=== PATIENT | male | born 1940 | race Caucasian/White ===

== ENCOUNTER 2018-08-07 09:37 | Emergency (ER) | payer MEDICARE, OTHER ==
[2018-08-07] MEDS ORDERED: amLODIPine TAB* 5 MG PO ONE (10:03)
--- NOTE | 2018-08-07 10:11 | ED ---
Complex/Multi-Sys Presentation - HPI Summary HPI Summary: 77-year-old male with history of atrial fibrillation and hypertension presents with asymptomatic hypertension noticed this morning. His blood pressure was 180 systolic. He states that he had been labile on his metoprolol and was recently changed off that onto digoxin by his division operations specialist Dr. Martinez. Today, he reports no chest pain, shortness of breath, headaches, numbness or weakness or other symptoms. He is not on blood thinner aside from aspirin and Plavix as he bled with anticoagulants in the past. - History Of Current Complaint Chief Complaint: EDHypertension Time Seen by Provider: 08/07/18 09:53 Hx Obtained From: Patient Timing: Constant - Allergies/Home Medications Allergies/Adverse Reactions: Allergies Allergy/AdvReac Type Severity Reaction Status Date / Time meperidine [From Demerol] Allergy Nausea And Verified 08/07/18 09:51 Vomiting PMH/Surg Hx/FS Hx/Imm Hx Previously Healthy: No Endocrine/Hematology History: Denies: Hx Anticoagulant Therapy Cardiovascular History: Reports: Hx Atrial Fibrillation, Hx Hypertension, Hx Pacemaker/ICD - Surgical History Surgery Procedure, Year, and Place: see above - Immunization History Date of Tetanus Vaccine: 2012 Date of Influenza Vaccine: 2013 Infectious Disease History: No Infectious Disease History: Denies: Traveled Outside the [place] in Last 30 Days - Family History Known Family History: Positive: Hypertension - Social History Occupation: Retired Alcohol Use: None Substance Use Type: Reports: None Smoking Status (MU): Former Smoker Review of Systems Constitutional: Negative Negative: Palpitations, Chest Pain Negative: Shortness Of Breath Negative: Vomiting, Nausea Negative: hematuria Negative: Arthralgia Negative: Headache, Weakness, Numbness All Other Systems Reviewed And Are Negative: Yes Physical Exam Triage Information Reviewed: Yes Vital Signs On Initial Exam: Initial Vitals Temp Pulse Resp BP Pulse Ox 98.3 F 90 16 139/75 97 08/07/18 09:46 08/07/18 09:46 08/07/18 09:46 08/07/18 09:46 08/07/18 09:46 Vital Signs Reviewed: Yes Appearance: Positive: Well-Appearing, No Pain Distress, Well-Nourished Skin: Positive: Warm, Skin Color Reflects Adequate Perfusion, Dry Eyes: Positive: Normal ENT: Positive: Normal ENT inspection Neck: Positive: Nontender Respiratory/Lung Sounds: Positive: Clear to Auscultation, Breath Sounds Present Cardiovascular: Positive: Pulses are Symmetrical in both Upper and Lower Extremities - pacemaker R chest. Negative: RRR - Irregularly irregular, Leg Edema Left, Leg Edema Right Abdomen Description: Positive: Nontender, No Organomegaly Musculoskeletal: Positive: Normal, Strength/ROM Intact Neurological: Positive: Normal, Sensory/Motor Intact, Alert, Oriented to Person Place, Time, CN Intact II-III Psychiatric: Positive: Normal Diagnostics - Vital Signs Vital Signs Temp Pulse Resp BP Pulse Ox 08/07/18 09:46 98.3 F 90 16 139/75 97 - Laboratory Lab Statement: Any lab studies that have been ordered have been reviewed, and results considered in the medical decision making process. - EKG EKG Cardiac Rate: NL - 97 EKG Interpretation: intermittent atrial paced rhythm with supraventricular bigeminy. EKG Comparison: Other - Possibility of atrial fibrillation. Normal axis. Nonspecific ST Complex Multi-Symp Course/Dx Course Of Treatment: Patient with asymptomatic hypertension after the pressure medication change. He had been taken off beta brennon as his blood pressure was labile. I started him on amlodipine 10 mg here with plans to give him 5 mg outpatient. He was gradual to follow-up with his division operations specialist Dr. Martinez first thing tomorrow. - Diagnoses Differential Diagnoses/HQI/PQRI: Other - Medication reaction Provider Diagnoses: Asymptomatic hypertension Discharge - Sign-Out/Discharge Documenting (check all that apply): Patient Departure - Discharge Plan Condition: Improved Disposition: HOME Prescriptions: amLODIPine TAB* [Norvasc 5 mg TAB*] 5 mg PO DAILY #6 tab Patient Education Materials: Hypertension (ED) Referrals: Elba Ruff MD [Primary Care Provider] - Additional Instructions: Call your division operations specialist first thing tomorrow to schedule follow-up. You're given 10 mg of amlodipine here in the ER. He'll be prescribed 5 mg. You can take 1 or 2 based on what your blood pressure is. Do not go below 110. Return if worse, new symptoms or other concerns. - Billing Disposition and Condition Condition: IMPROVED Disposition: Home - Attestation Statements Document Initiated by Scribe: No
[2018-08-07 10:23] VITALS: BP 164/76
== END 2018-08-07 10:23 | disposition home or self-care (01) ==
LOC: ED 09:37
DX: I10 Essential (primary) hypertension (principal); I48.91 Unspecified atrial fibrillation; Z87.891 Personal history of nicotine dependence; Z95.810 Presence of automatic (implantable) cardiac defibrillator; Z88.8 Allergy status to other drugs, medicaments and biological substances; I45.10 Unspecified right bundle-branch block
CPT/HCPCS: 93005; 99282; A9270-GY

== ENCOUNTER 2019-11-14 09:44 | Emergency (ER) | payer MEDICARE, BC ==
[2019-11-14 09:56] VITALS: BP 155/80
--- OUTSIDE RECORDS SUMMARY | 2019-11-14 10:03 | XMS REPORT | Continuity of Care Document ---
:1940 External Reference #:[id number] Author Name Josef Martinez M.D. (transmitted by agent of provider Anna Gómez ) Address [address] [place] [address] Care Team Providers Name Role Phone Buster Barlow MD - Urology Care Team Information Handbag Frames Inspector [phone] Elba Ruff MD - Internal Care Team Information Handbag Frames Inspector Medicine Problems Active Problems Provider Date Sinus node dysfunction Remote Device Checks Onset: 02/19/2012 Coronary arteriosclerosis Josef Martinez M.D. Onset: 10/14/2012 Syncope and collapse Josef Martinez M.D. Onset: 10/14/2012 Pure hypercholesterolemia Josef Martinez M.D. Onset: 02/16/2013 Low blood pressure Josef Martinez M.D. Onset: 02/16/2013 Cardiac pacemaker in situ Josef Martinez M.D. Onset: 02/06/2014 Benign essential hypertension Josef Martinez M.D. Onset: 02/06/2014 Essential hypertension Josef Martinez M.D. Onset: 09/17/2015 Localized, primary osteoarthritis Treasure Xiao M.D. Onset: 07/31/2019 Social History Type Date Description Comments Sex Unknown Tobacco Use Start: Unknown End: Former Cigarette Smoker Unknown Tobacco Use Start: Unknown End: Former Cigarette Smoker 25 years Unknown 5-10 Cigarettes Daily Cigarette Use Quit - Age 38 Smoking Status Reviewed: 09/19/19 Former Cigarette Smoker 25 years 5-10 Cigarettes Daily ETOH Use Rarely consumes alcohol 1-2x per year Tobacco Use Start: Unknown End: Patient is a former Unknown smoker Recreational Drug Use Denies Drug Use Tobacco Use Start: Unknown Not smoking at all Exercise Type/Frequency Exercises regularly Exercise Type/Frequency walks at least 4 times a week Allergies, Adverse Reactions, Alerts Active Allergies Reaction Severity Comments Date Lisinopril cough 06/21/2010 Enalapril urticaria 06/21/2010 Demerol N/V 08/18/2012 Xarelto nose bleeds 08/16/2018 Inactive Allergies NKDA 11/18/2004 Medications Active Medications SIG Qnty Indications Ordering Provider Date Digoxin 1 [facility] mouth [facility] [place], 08/17/2018 125mcg day N.P. Tablets Toprol XL 1 tab by mouth 180tabs I48.0 [facility] [place], 08/08/2018 25mg twice a day N.P. Tablets ER 24HR Klor-Con M10 1 tab by mouth 180tabs [facility] [place], 08/31/2017 10Meq twice a day N.P. Tablets ER Losartan Potassium 1 tab by mouth 90tabs [facility] [place], 08/31/2017 daily N.P. 25mg Tablets Aspir-81 1 by mouth every 100tabs Josef Berrios 02/13/2016 81mg Tablets day (dain Martinez M.D. DR 11/10/18) Nitrostat one sl q5min up 25tabs Tatum Sade [place], 03/15/2014 0.4mg to 3 doses as N.P. Tablets Sub needed Plavix 1 by mouth every 90tabs Josef Berrios 11/04/2012 75mg Tablets day Kiko Martinez Crestor 1 tab by mouth 90tabs [facility] [place], 08/07/2008 20mg Tablets every day N.P. Uroxatral 1 po qd Unknown 10mg Tablets ER 24HR Ferrous Sulfate 1 tab daily by 90tabs Tatum Damon, mouth N.P. 325(65Fe) mg Tablets Multi-Vitamins take one tablet Unknown by mouth every Tablets day (supplement) Cpap for use while Unknown Device sleeping Bilateral Hearing Unknown Aid Medications Administered in Office Medication SIG Qnty Indications Ordering Provider Date Synvisc Or Synvisc-One Injection Treasure Xiao M.D. 09/18/2019 1 MG Injection Synvisc Or Synvisc-One Injection Treasure Xiao M.D. 09/18/2019 1 MG Injection Synvisc Or Synvisc-One Injection Treasure Xiao M.D. 09/11/2019 1 MG Injection Synvisc Or Synvisc-One Injection Treasure Xiao M.D. 09/11/2019 1 MG Injection Synvisc Or Synvisc-One Injection Treasure Xiao M.D. 09/04/2019 1 MG Injection Synvisc Or Synvisc-One Injection Treasure Xiao M.D. 09/04/2019 1 MG Injection Depomedrol 40MG Treasure Xiao M.D. 07/31/2019 Injection Depomedrol 40MG Brenden Rojo M.D. 02/28/2016 Injection Depomedrol 40MG Brenden Rojo M.D. 07/26/2015 Injection Immunizations Description No Information Available Vital Signs Date Vital Result Comment 09/19/2019 3:31pm Height 68 inches 5'8" Weight 144.50 lb with shoes Heart Rate 68 /min right radial BP Systolic Sitting 140 mmHg ule reg cuff BP Diastolic Sitting 76 mmHg ule reg cuff BP Systolic Standing 138 mmHg ule reg cuff BP Diastolic Standing 76 mmHg ule reg cuff BMI (Body Mass Index) 22.0 kg/m2 Ejection Fraction 50-55% Echo 04/20/19 09/18/2019 1:53pm Height 68 inches 5'8" Weight 140.00 lb Heart Rate 84 /min BP Systolic 132 mmHg BP Diastolic 72 mmHg Body Temperature 97.7 F Pain Level 0 BMI (Body Mass Index) 21.3 kg/m2 Results Description No Information Available Procedures Date Code Description Status 09/19/2019 37491 EKG Tracing & Interpretation Completed 09/18/2019 Inject/Drain Joint/Bursa Major W/O US Completed 09/18/2019 Inject/Drain Joint/Bursa Major W/O US Completed 09/11/2019 Inject/Drain Joint/Bursa Major W/O US Completed 09/04/2019 Inject/Drain Joint/Bursa Major W/O US Completed 07/31/2019 Inject/Drain Joint/Bursa Major W/O US Completed 05/22/2019 13310 EKG Tracing & Interpretation Completed 04/20/2019 47292 ECHO Transthoracic, Real-Time 2D With Doppler And Color Completed Flow 04/20/2019 36651 ECHO Transthoracic, Real-Time 2D With Doppler And Color Completed Flow 10/08/2015 [id number] Colonoscopy Completed Medical Devices Description No Information Available Encounters Type Date Location Provider Dx Diagnosis Office Visit 08/14/2019 [facility] Treasure Xiao, M17.0 [facility] 07/31/2019 [facility] Treasurecristi Xiao, M25.561 Pain in right knee 9:30[facility] M25.461 Effusion, right knee M17.11 Unilateral primary osteoarthritis, right knee M25.562 Pain in left knee M25.462 Effusion, left knee M17.12 Unilateral primary osteoarthritis, left knee Office Visit 05/22/2019 2:00p [facility] Josef Berrios I25.10 [facility] Kiko Martinez disease of [place] coronary artery w/o ang pctrs I42.9 Cardiomyopathy, unspecified I35.0 Nonrheumatic aortic (valve) stenosis I49.5 Sick sinus syndrome I48.0 Paroxysmal atrial fibrillation Office Visit 05/22/2019 9:15a [facility] J44.9 [facility] 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 coronary artery with 09/19/2019 J44.9 Chronic obstructive pulmonary disease, Josef Martinez M.D. unspecified 09/19/2019 I35.0 Aortic valve disorder Josef Martinez M.D. 09/19/2019 E78.5 Hyperlipidemia Josef Martinez M.D. 09/19/2019 I49.5 Sick sinus syndrome Josef Martinez M.D. 09/18/2019 M17.0 Bilateral primary osteoarthritis of knee Treasure Xiao M.D. 09/18/2019 M25.561 Pain in right knee Treasure Dameon, M.D. 09/18/2019 M25.562 Pain in left knee Treasure Dameon, M.D. 09/18/2019 M25.461 Effusion, right knee Treasure Dameon, M.D. 09/18/2019 M25.462 Effusion, left knee Treasure Dameon, M.D. 09/11/2019 M17.0 Bilateral primary osteoarthritis of knee Treasure Dameon, M.D. 09/11/2019 M25.561 Pain in right knee Treasure Dameon, M.D. 09/11/2019 M25.461 Effusion, right knee Treasure Dameon, M.D. 09/11/2019 M25.562 Pain in left knee Treasure Dameon, M.D. 09/11/2019 M25.462 Effusion, left knee Treasure Dameon, M.D. 09/04/2019 M17.0 Bilateral primary osteoarthritis of knee Treasure Dameon, M.D. 09/04/2019 M25.561 Pain in right knee Treasure Dameon, M.D. 09/04/2019 M25.461 Effusion, right knee Treasure Dameon, M.D. 09/04/2019 M25.562 Pain in left knee Treasure Dameon, M.D. 09/04/2019 M25.462 Effusion, left knee Treasure Dameon, M.D. 08/14/2019 M17.0 Bilateral primary osteoarthritis of knee Treasure Dameon, M.D. 07/31/2019 M25.561 Pain in right knee Treasure Dameon, M.D. 07/31/2019 M25.461 Effusion, right knee Treasure Dameon, M.D. 07/31/2019 M17.11 Unilateral primary osteoarthritis, right Treasure Dameon, M.D. knee 07/31/2019 M25.562 Pain in left knee Treasure Dameon, M.D. 07/31/2019 M25.462 Effusion, left knee Treasure Dameon, M.D. 07/31/2019 M17.12 Unilateral primary osteoarthritis, left Treasure Dameon, M.D. knee 05/22/2019 J44.9 Chronic obstructive pulmonary disease, Celina Benitez MD unspecified 05/22/2019 I25.10 Atherosclerotic heart disease of [place] Josef Martinez M.D. coronary artery with 05/22/2019 I42.9 Cardiomyopathy Josef Martinez M.D. 05/22/2019 G47.33 Obstructive sleep apnea (adult) Celina Benitez MD (pediatric) 05/22/2019 I35.0 Aortic valve stenosis Josef Martinez M.D. 05/22/2019 I49.5 Sick sinus syndrome Josef Martinez M.D. 05/22/2019 I48.0 Paroxysmal atrial fibrillation Josef Martinez M.D. 04/20/2019 I25.10 Atherosclerotic heart disease of [place] Josef Martinez M.D. coronary artery without angina pectoris 04/20/2019 I25.10 Athscl heart disease of [place] coronary [place] [facility] Schedule artery w/o ang pctrs 04/20/2019 I42.9 Cardiomyopathy [place] [facility] Schedule 04/20/2019 I35.0 Aortic valve stenosis [place] [facility] Schedule Plan of Treatment 09/19/2019 - Josef Martinez M.D.I25.10 Atherosclerotic heart disease of [place] coronary artery withFollow up:ov 9 mJ44.9 Chronic obstructive pulmonary disease, ckmyajiandtH91.0 Aortic valve jlmrzwchF56.5 KxsbospxfuwyveW52.5 Sick sinus syndrome Functional Status Description No Information Available Mental Status Description No Information Available Referrals Description No Information Available
--- OUTSIDE RECORDS SUMMARY | 2019-11-14 10:04 | XMS REPORT | Continuity of Care Document ---
:1940 External Reference #:[id number] Author Name Treasure Xiao M.D. (transmitted by agent of provider Kena Cuevas) Address [address] [place] [address] Care Team Providers Name Role Phone Buster Barlow MD - Urology Care Team Information Health Tech [phone] Elba Ruff MD - Internal Care Team Information Health Tech Medicine Problems Active Problems Provider Date Sinus [...] Quit - Age 38 Smoking Status Reviewed: 09/18/19 Former Cigarette Smoker 25 years 5-10 Cigarettes [...] Medications Active Medications SIG Qnty Indications Ordering Date Provider Digoxin 1 by mouth every 90tabs [facility], 08/17/2018 125mcg day N.P. Tablets Toprol XL 1 tab by mouth 180tabs I48.0 [facility], 08/08/2018 25mg twice a day N.P. Tablets ER 24HR Klor-Con M10 1 tab by mouth 180tabs [facility], 08/31/2017 10Meq twice a day N.P. Tablets ER Losartan Potassium 1 tab by mouth 90tabs [facility], 08/31/2017 daily N.P. 25mg Tablets Aspir-81 1 by mouth every 100tabs Josef Sade 02/13/2016 81mg Tablets day (dain Martinez M.D. DR 11/10/18) Nitrostat one sl q5min up to [facility] [place], 03/15/2014 0.4mg 3 doses as needed N.P. Tablets Sub Plavix 1 by mouth every 90tabs Josef Berrios 11/04/2012 75mg Tablets day Kiko Martinez Crestor 1 tab by mouth 90tabs [facility], 08/07/2008 20mg Tablets every day N.P. Uroxatral 1 po qd Unknown 10mg Tablets ER 24HR Ferrous Sulfate 1 tab daily by 90tabs Tatum Sade [place], mouth N.P. 325(65Fe) mg Tablets Multi-Vitamins take one tablet by Unknown mouth every day Tablets (supplement) Cpap for use while Unknown Device sleeping Bilateral Hearing Unknown Aid Amoxicillin take 4 tablets by Unknown 500mg mouth 1 hour Tablets before dental procedure Medications Administered in Office Medication SIG Qnty [...] M.D. 09/04/2019 1 MG Injection Depomedrol 40MG Terasure Xiao M.D. 07/31/2019 Injection Depomedrol 40MG Brenden Rojo M.D. 02/28/2016 Injection Depomedrol 40MG Brenden Rojo M.D. 07/26/2015 Injection Immunizations Description No Information Available Vital Signs Date Vital Result Comment 09/18/2019 1:53pm Height 68 inches 5'8" Weight 140.00 lb Heart Rate 84 /min BP Systolic 132 mmHg BP Diastolic 72 mmHg Body Temperature 97.7 F Pain Level 0 BMI (Body Mass Index) 21.3 kg/m2 09/11/2019 10:35am Height 68 inches 5'8" Weight 140.00 lb Heart Rate 81 /min BP Systolic 140 mmHg BP Diastolic 79 mmHg Body Temperature 97.4 F Pain Level 0 BMI (Body Mass Index) 21.3 kg/m2 Results Description No Information Available Procedures Date Code Description Status 09/18/2019 Inject/Drain Joint/Bursa Major W/O US Completed 09/18/2019 Inject/Drain Joint/Bursa Major W/O US Completed 09/11/2019 Inject/Drain Joint/Bursa Major W/O US Completed 09/11/2019 Inject/Drain Joint/Bursa Major W/O US Completed 09/04/2019 Inject/Drain Joint/Bursa Major W/O US Completed 07/31/2019 Inject/Drain Joint/Bursa Major W/O US Completed 05/22/2019 22041 EKG Tracing & Interpretation Completed 04/20/2019 51901 ECHO Transthoracic, Real-Time 2D With Doppler And Color Completed Flow 04/20/2019 60024 ECHO Transthoracic, Real-Time 2D With Doppler And Color Completed Flow 10/08/2015 [id number] Colonoscopy Completed Medical Devices Description No Information Available Encounters Type Date Location Provider Dx Diagnosis Office Visit 08/14/2019 [facility] Treasure Xiao, M17.0 Bilateral primary 9:[facility]a [facility] osteoarthritis of knee Office Visit 07/31/2019 [facility] Treasure Xiao, M25.561 Pain in right knee 9:30a [facility] M25.461 Effusion, right knee M17.11 Unilateral primary osteoarthritis, right knee M25.562 Pain in left knee M25.462 Effusion, left knee M17.12 Unilateral primary osteoarthritis, left knee Office Visit 05/22/2019 2:00p [facility]25.10 [facility] disease of [place] coronary artery w/o ang pctrs I42.9 Cardiomyopathy, unspecified I35.0 Nonrheumatic aortic (valve) stenosis I49.5 Sick sinus syndrome I48.0 Paroxysmal atrial fibrillation Office Visit 05/22/2019 9:15a [facility] J44.9 [facility] obstructive 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 09/18/2019 M25.561 Pain in right knee Treasure Xiao M.D. 09/18/2019 M25.562 Pain in left knee Treasure Xiao M.D. 09/18/2019 M25.461 Effusion, right knee Treasure Xiao M.D. 09/18/2019 M25.462 Effusion, left knee Treasure Xiao M.D. 09/11/2019 M17.0 Bilateral primary osteoarthritis of knee Treasure Xiao M.D. 09/11/2019 M25.561 Pain in right knee Treasure Xiao M.D. 09/11/2019 M25.461 Effusion, right knee Treasure [...] osteoarthritis, left Treasure Dameon, M.D. knee 05/22/2019 I25.10 Atherosclerotic heart disease of [place] Josef Martinez M.D. coronary artery with 05/22/2019 J44.9 Chronic obstructive pulmonary disease, Celina Benitez MD unspecified 05/22/2019 G47.33 Obstructive sleep apnea (adult) Celina Benitez MD (pediatric) 05/22/2019 I42.9 Cardiomyopathy Josef Martinez M.D. 05/22/2019 I35.0 Aortic valve stenosis Josef Martinez M.D. 05/22/2019 I49.5 Sick sinus syndrome Josef Martinez M.D. 05/22/2019 I48.0 Paroxysmal atrial fibrillation Josef Martinez M.D. 04/20/2019 I25.10 Atherosclerotic heart disease of [place] Josef Martinez M.D. coronary artery without angina pectoris 04/20/2019 I25.10 Athscl heart disease of [place] coronary [place] [facility] Schedule artery w/o ang pctrs 04/20/2019 I42.9 Cardiomyopathy [place] [facility] Schedule 04/20/2019 I35.0 Aortic valve stenosis [place] [facility] Schedule Plan of Treatment 09/18/2019 - Treasure Xiao M.D.M17.0 Bilateral primary osteoarthritis of kneeFollow up:Follow up: As nrwnutK26.561 Pain in right kneeM25.562 Pain in left kneeM25.461 Effusion, right kneeM25.462 Effusion, left knee Functional Status Description No Information Available Mental Status Description No Information Available Referrals Description No Information Available
== END 2019-11-14 11:52 | disposition left against medical advice (07) ==
LOC: ED 09:44
DX: R07.81 Pleurodynia (principal); Z53.21 Procedure and treatment not carried out due to patient leaving prior to being seen by health care provider
CPT/HCPCS: 99281

== ENCOUNTER 2020-03-19 06:13 | Observation (INO) ==
[~2020-03-19 06:13] MED LIST: Lactated Ringers 1000 ml BAG 1,000 ML IV SCH; ceFAZolin 2 GM PREMIX 2 GM/50 ML BAG ONE
[2020-03-19] MEDS ORDERED: fentaNYL 100 mcg/2 ml 50 MCG/ML VIAL ONE (07:13)
[2020-03-19] MEDS ORDERED: Bupivacaine 0.5% SDV PF 30ML VIAL ONE (07:27)
[2020-03-19] MEDS ORDERED: ROPIVACAINE 5 MG/ML 30 ML BTL (0.5%) ONE (07:43)
[2020-03-19] MEDS ORDERED: Ondansetron 4 mg VIAL 2 MG/ML 2 ml VIAL ONE (08:45)
[2020-03-19] MEDS ORDERED: Lidocaine 2% PF 5 ML VIAL ONE (08:45)
[2020-03-19] MEDS ORDERED: Dexamethasone IV 4 MG/ML VIAL 1 ml VIAL ONE (08:45)
[2020-03-19] MEDS ORDERED: Lactulose 30 ml UDC PO PRN (10:15)
[2020-03-19] MEDS ORDERED: diPHENhydraMINE 25 mg TAB PO PRN (10:15)
[2020-03-19] MEDS ORDERED: Magnesium Hydroxide LIQ 30 ML UDC PO PRN (10:15)
[2020-03-19] MEDS ORDERED: oxyCODONE/Acetamin 5/325 mg TAB PO PRN (10:15)
[2020-03-19] MEDS ORDERED: Ondansetron ODT 4 mg TAB 4 MG TAB PO PRN (10:15)
[2020-03-19] MEDS ORDERED: Ondansetron 4 mg VIAL 2 MG/ML 2 ml VIAL IV PRN (10:15)
[2020-03-19] MEDS ORDERED: diPHENhydraMINE IV 50 MG/ML 1 ml VIAL (BENADRYL) IV PRN (10:15)
[2020-03-19] MEDS ORDERED: Naloxone 0.4 mg VIAL 0.4 mg/ml 1 ml VIAL IV PRN (10:29)
[2020-03-19] MEDS ORDERED: Lactated Ringers 1000 ml BAG 1,000 ML IV SCH (11:00)
[2020-03-19] MEDS: ceFAZolin VIAL 1 GM in NS 0.9% 50 ML 50 ML IVPB SCH (16:50)
[2020-03-19] MEDS: Potassium Chlor 10 meq TAB PO SCH (20:24)
[2020-03-19] MEDS: Magnesium Hydroxide LIQ 30 ML UDC PO SCH (20:25)
[2020-03-20] MEDS: ceFAZolin VIAL 1 GM in NS 0.9% 50 ML 50 ML IVPB SCH ×2 (00:35→08:42)
[2020-03-20 05:53] LABS: Hematocrit 24 % (42-52); Hemoglobin 8.4 g/dL (14.0-18.0); Mean Platelet Volume 8.5 fL (7.4-10.4); Platelet Count 125 10^3/uL (150-450)
[2020-03-20 06:22] LABS: BUN/Creatinine Ratio 29.3 (8-20); Calcium 8.7 mg/dL (8.6-10.3); EGFR African American 73.1 (>60); EGFR Non-African American 60.4 (>60); Potassium 4.6 mmol/L (3.5-5.0)
[2020-03-20 06:34] LABS: Digoxin 0.8 ng/ml (0.8-2.0)
[2020-03-20] MEDS: Potassium Chlor 10 meq TAB PO SCH (08:45)
[2020-03-20] MEDS ORDERED: Vitamin THERAPEUTIC TAB PO SCH (09:00)
[2020-03-20] MEDS: Magnesium Hydroxide LIQ 30 ML UDC PO SCH (09:37)
[2020-03-20 11:32] VITALS: BP 111/49
== END 2020-03-20 13:15 | disposition home or self-care (01) ==
LOC: SSU 06:13 → OR 06:13
PROVIDERS: ADMIT Orthopaedic Surgery Adult Reconstructive Orthopaedic Surgery; ATTEND Orthopaedic Surgery Adult Reconstructive Orthopaedic Surgery

== ENCOUNTER 2020-03-22 14:56 | Inpatient (IN) ==
[2020-03-22 16:47] LABS: ABS Lymphocytes 0.5 10^3/ul (1.0-4.8); ABS Monocytes 0.5 10^3/ul (0-0.8); Eosinophil % 0.3 %; Hematocrit 22 % (42-52); Hemoglobin 7.5 g/dL (14.0-18.0); Lymphocyte % 7.9 %; Mean Corpuscular HGB Conc 34 g/dL (31-36); Mean Corpuscular Hemoglobin 31 pg (27-31); Mean Corpuscular Volume 92 fL (80-94); Mean Platelet Volume 8.5 fL (7.4-10.4); Platelet Count 128 10^3/uL (150-450); Red Blood Count 2.43 10^6 /uL (4.18-5.48); Red Cell Distribution Width 15 % (10-15)
[2020-03-22 16:52] LABS: INR 1.36 (0.82-1.09)
[2020-03-22 17:03] LABS: Albumin 3.5 g/dL (3.2-5.2); Albumin/Globulin Ratio 1.2 (1-3); BUN/Creatinine Ratio 32.5 (8-20); Calcium 9.2 mg/dL (8.6-10.3); EGFR African American 70.3 (>60); EGFR Non-African American 58.1 (>60); Potassium 4.5 mmol/L (3.5-5.0); Total Bilirubin 1.3 mg/dL (0.2-1.0); Total Protein 6.5 g/dL (6.4-8.9)
[2020-03-22 20:49] LABS: Hematocrit 22 % (42-52); Hemoglobin 7.6 g/dL (14.0-18.0)
[2020-03-22] MEDS ORDERED: Diltiazem IV push/loading dose 5 MG/ML 5 ML vial (25 mg) IV SLOW PU ONE ×2 (21:51→22:02)
[2020-03-22 22:13] LABS: Digoxin 0.7 ng/ml (0.8-2.0)
[2020-03-22 22:38] LABS: Troponin I 0.05 ng/mL (<0.03)
[2020-03-22] MEDS ORDERED: oxyCODONE/Acetamin 5/325 mg TAB PO PRN (23:08)
[2020-03-22] MEDS ORDERED: Al Hydrox/Mg Hydrox/Simet LIQ 30 ML UDC PO PRN (23:08)
[2020-03-23 06:28] LABS: ABS Lymphocytes 0.4 10^3/ul (1.0-4.8); ABS Monocytes 0.6 10^3/ul (0-0.8); Eosinophil % 0.2 %; Hematocrit 23 % (42-52); Hemoglobin 7.8 g/dL (14.0-18.0); Lymphocyte % 7.8 %; Mean Corpuscular HGB Conc 35 g/dL (31-36); Mean Corpuscular Hemoglobin 31 pg (27-31); Mean Corpuscular Volume 90 fL (80-94); Mean Platelet Volume 8.1 fL (7.4-10.4); Platelet Count 127 10^3/uL (150-450); Red Blood Count 2.52 10^6 /uL (4.18-5.48); Red Cell Distribution Width 14 % (10-15); White Blood Count 5.4 10^3/uL (3.5-10.8)
[2020-03-23 06:54] LABS: Anion Gap 5 mmol/L (2-11); Blood Urea Nitrogen 30 mg/dL (6-24); CO2 Carbon Dioxide 26 mmol/L (22-32); Calcium 8.9 mg/dL (8.6-10.3); Chloride 103 mmol/L (101-111); EGFR African American 86.8 (>60); EGFR Non-African American 71.7 (>60); Glucose 106 mg/dL (70-100); Potassium 3.9 mmol/L (3.5-5.0); Sodium 134 mmol/L (135-145)
[2020-03-23] MEDS: Potassium Chlor 10 meq TAB PO SCH ×2 (09:01→20:55)
[2020-03-23 10:29] LABS: Troponin I 0.09 ng/mL (<0.03)
[2020-03-23 14:41] LABS: Hematocrit 22 % (42-52); Hemoglobin 7.7 g/dL (14.0-18.0)
[2020-03-23] MEDS: CMCS:Alfuzosin ER 10 mg TAB.ER (NF) 10 MG TAB.ER PO SCH (17:31)
[2020-03-23] MEDS: CMCS:Rosuvastatin 20 mg TAB (NF) PO SCH (17:31)
[2020-03-23 23:47] LABS: Hematocrit 21 % (42-52); Hemoglobin 7.4 g/dL (14.0-18.0)
[2020-03-24 06:32] LABS: ABS Lymphocytes 0.5 10^3/ul (1.0-4.8); ABS Monocytes 0.6 10^3/ul (0-0.8); Eosinophil % 0.4 %; Hematocrit 22 % (42-52); Hemoglobin 7.8 g/dL (14.0-18.0); Lymphocyte % 11.6 %; Mean Corpuscular HGB Conc 35 g/dL (31-36); Mean Corpuscular Hemoglobin 31 pg (27-31); Mean Corpuscular Volume 89 fL (80-94); Mean Platelet Volume 7.9 fL (7.4-10.4); Platelet Count 146 10^3/uL (150-450); Red Blood Count 2.49 10^6 /uL (4.18-5.48); Red Cell Distribution Width 14 % (10-15); White Blood Count 4.3 10^3/uL (3.5-10.8)
[2020-03-24 06:50] LABS: BUN/Creatinine Ratio 29.6 (8-20); EGFR African American 88.8 (>60); EGFR Non-African American 73.4 (>60); Potassium 3.9 mmol/L (3.5-5.0)
[2020-03-24] MEDS: Potassium Chlor 10 meq TAB PO SCH ×2 (08:47→20:25)
[2020-03-24] MEDS ORDERED: Iron Sucrose 200 MG in NS 0.9% 100 ml BAG 100 ML IVPB ONE (10:09)
[2020-03-24 17:08] LABS: Hematocrit 25 % (42-52); Hemoglobin 8.8 g/dL (14.0-18.0)
[2020-03-24] MEDS: CMCS:Alfuzosin ER 10 mg TAB.ER (NF) 10 MG TAB.ER PO SCH (17:36)
[2020-03-24] MEDS: CMCS:Rosuvastatin 20 mg TAB (NF) PO SCH (17:36)
[2020-03-25 07:09] LABS: ABS Lymphocytes 0.6 10^3/ul (1.0-4.8); ABS Monocytes 0.7 10^3/ul (0-0.8); Hematocrit 27 % (42-52); Hemoglobin 9.4 g/dL (14.0-18.0); Mean Corpuscular HGB Conc 35 g/dL (31-36); Mean Corpuscular Hemoglobin 32 pg (27-31); Mean Corpuscular Volume 90 fL (80-94); Mean Platelet Volume 7.8 fL (7.4-10.4); Platelet Count 193 10^3/uL (150-450); Red Blood Count 2.95 10^6 /uL (4.18-5.48); Red Cell Distribution Width 14 % (10-15); White Blood Count 4.5 10^3/uL (3.5-10.8)
[2020-03-25] MEDS: Potassium Chlor 10 meq TAB PO SCH (08:09)
[2020-03-25 12:16] VITALS: BP 146/62
== END 2020-03-25 13:50 | disposition home or self-care (01) | DRG 812 ==
LOC: MEDTELE 14:56 → ED 14:56 → MEDTELE 23:36
PROVIDERS: ADMIT Internal Medicine; ATTEND Internal Medicine